=== PATIENT | male | born 1955 | race Caucasian/White ===

== ENCOUNTER → 2017-02-16 | Day surgery (SDC) | payer OTHER ==
[~2017-02-16] MED LIST: B-COTAB41 PO; BUPIVACAINE HCL PF 0.75% 30 ML VIAL ONE; EPINEPHrine HCL (1:1000) 30 MG/30 ML VIAL ONE; HYDR-2768 PO; LACTATED RINGER'S 1000 ML INJ 1,000 ML ONE; LIDOCAINE 1.5%/EPINEPHrine 1:200,000 PF SOLN 30 ML AMP ONE; LOSA100T PO; MAGN500T4 PO; MIDAZOLAM HCL 5 MG/ML VIAL (1 ML) ONE; MOBI15TA PO; NORC7.5T PO; ONDANSETRON HCL 4 MG/2 ML VIAL IV PUSH ONE; PRIL40CA PO; PROPOFOL 500 MG/50 ML BTL IV ONE; WALKER STANDARD; WELL150T PO; ceFAZolin 2 GM PREMIX 50 ML ONE
--- NOTE | 2017-02-16 13:21 | MP ---
cc: PEDRO DIAZ M.D. DATE OF SURGERY 02/16/2017 PREOPERATIVE DIAGNOSIS Right shoulder large full-thickness rotator cuff tear involving supraspinatus and infraspinatus. POSTOPERATIVE DIAGNOSIS Right shoulder large full-thickness rotator cuff tear involving supraspinatus and infraspinatus. PROCEDURE Right shoulder arthroscopic rotator cuff repair using [employer] SpeedBridge technique. ANESTHESIA Interscalene block and general. SURGEON Pedro Diaz MD [employer] SURGEON Agustin HAY. ESTIMATED BLOOD LOSS Minimal. COMPLICATIONS None known. INDICATION Js Garcia is a 61-year-old male who sustained an acute injury to his right shoulder and has marked functional deficit. Workup with MRI scan reveals a very large rotator cuff tear involving the entire supraspinatus and infraspinatus. Based on the severity of the tear and his incapacitation and the MRI findings, he is indicated for surgical intervention. The risks, benefits and alternatives to treatment were thoroughly discussed in detail and informed consent was obtained. The first aid instructor is an advanced registered nurse practitioner. His skill set was medically necessary for the performance of the operation. PROCEDURE The patient is given interscalene block in the preop holding area, brought to the operating room, placed under general anesthetic. The right upper extremities was draped and prepped in the usual sterile fashion with the patient in lateral decubitus position with axillary roll in place with a beanbag in place. We proceeded with three portal technique, posterior soft spot laterally at the junction of the middle and the anterior-third of the acromion, an accessory portal anterior. Blunt trocar was used introduce the cannula. The shoulder was insufflated with saline. The first photograph shows normal-appearing articular surface, posterior glenoid labrum and articular surfaces all looked normal. Mild fraying posteriorly. Biceps intact. Looking upwards we saw a large full-thickness rotator cuff tear with significant retraction. We proceeded to do a mild debridement of the posterior labrum and then we moved into the subacromial space and performed subacromial bursectomy, prior scar tissue from surgery which she had over 10 years ago. There were two main layers to the tear and we debrided the edges of the tear and brought this down to bleeding bone and we re-freshened the undersurface of the acromion and then we proceeded with the SpeedBridge technique, placing the articular margin anchors and with this anchor anteriorly we used the single suture to do a [id number] stitch to close the rotator interval and changed this from a very large tear to more of a crescent-shaped tear. Then the FiberTape was used to capture both layers and in a similar fashion the more posterior anchor was placed and we did a [id number] stitch posteriorly with the single stitch and then the FiberTape placed through both layers. Then did the typical crisscross technique laterally with an additional dog ear stitch anteriorly. The repair appeared anatomic and solid. There was adequate decompression and multiple photographs showed the final result. The arthroscopic equipment was removed. We had very good hemostasis. Closed with absorbable sutures and Steri-Strips. Sterile dressing applied. The patient was awoken and returned to the recovery room in stable condition. MD HEENA Stover/TALIB /10:50 AM /1:00 PM
== END | disposition home or self-care (01) ==
LOC: ESDC 06:52
PROVIDERS: ATTEND Orthopaedic Surgery Sports Medicine
DX: M75.121 Complete rotator cuff tear or rupture of right shoulder, not specified as traumatic (principal)
CPT/HCPCS: 01630; 01991; 29827; 64417; C1713; J0171; J0690; J2250; J2405; J7120